=== PATIENT | male | born 1935 | race African-American/Black ===

== ENCOUNTER 2018-03-12 07:34 | Inpatient (IN) | payer OTHER ==
[~2018-03-12] VITALS: Ht 172.7 cm; Wt 97.2 kg
[2018-03-12] MEDS ORDERED: RANI150T7 MT (08:02)
[2018-03-12] MEDS ORDERED: LISI-649 MT (08:02)
[2018-03-12] MEDS ORDERED: TERA5CAP4 MT (08:02)
[2018-03-12] MEDS ORDERED: ATEN50TA MT (08:02)
[2018-03-12] MEDS ORDERED: ATOR-2 MT (08:02)
[2018-03-12] MEDS ORDERED: SODIUM CHLORIDE 0.9% 1,000 ML IV ONE (08:44)
[2018-03-12 09:17] LABS: HEMATOCRIT. 42.6 % (42.0-52.0); HEMOGLOBIN. 14.2 g/dL (14.0-18.0); MEAN CORPUSCULAR HEMOGLOBIN 32.2 pg (28.0-32.0); MEAN CORPUSCULAR VOLUME 96.4 fL (80.0-94.0); MEAN PLATELET VOLUME 9.1 fl (7.4-10.4); PLATELET 205 x1000/uL (130-400); RED BLOOD CELL COUNT 4.42 mill/uL (4.7-6.1); RED CELL DISTRIBUTION WIDTH 14.2 % (11.6-14.6)
[2018-03-12 09:26] LABS: INR 1.1
[2018-03-12 09:42] LABS: CHLORIDE 107 mEq/L (98-107)
[2018-03-12 09:57] LABS: PLATELET ESTIMATE NORMAL
[2018-03-12] MEDS ORDERED: LIDOCAINE HCL 2% JELLY 5ML TOP ONE (10:00)
[2018-03-12 14:57] LABS: CLARITY URINE CLOUDY (CLEAR); COLOR URINE RED (YELLOW); KETONES URINE NEGATIVE (NEGATIVE); LEUKOCYTE ESTERASE URINE TRACE (NEGATIVE); NITRITE URINE NEGATIVE (NEGATIVE); OCCULT BLOOD URINE 3+ (NEGATIVE); PH URINE 5.5 (4.5-8.0); PROTEIN URINE NEGATIVE (NEGATIVE); SPECIFIC GRAVITY URINE 1.006 (1.005-1.030); UROBILINOGEN URINE 0.2 E.U./dL (0.2-1.0)
[2018-03-12] MEDS ORDERED: CEFTRIAXONE 1 G PREMIX 50 ML IV ONE (15:15)
[2018-03-12] MEDS ORDERED: MAGNESIUM/ALUMINUM HYDROXIDE/SIMETHICONE 30ML UDC PO PRN (17:45)
[2018-03-12] MEDS ORDERED: IPRATROPIUM/ALBUTEROL 0.5-3(2.5)MG/3ML NEB INH PRN (17:45)
[2018-03-12] MEDS ORDERED: DIPHENHYDRAMINE 50MG/ML VIAL IV PRN (17:45)
[2018-03-12] MEDS ORDERED: HYDROCODONE/ACETAMINOPHEN 5/325MG TABLET PO PRN (17:45)
[2018-03-12] MEDS ORDERED: NA PHOS,M-B/NA PHOS,DI-BA ENEMA 118ML PR PRN (17:45)
[2018-03-12] MEDS ORDERED: DOCUSATE SODIUM 100MG CAPSULE PO PRN (17:45)
[2018-03-12] MEDS ORDERED: ONDANSETRON HCL 4MG/2ML INJ IV PRN (17:45)
[2018-03-12] MEDS ORDERED: ACETAMINOPHEN 325MG TABLET PO PRN (17:45)
[2018-03-12] MEDS ORDERED: GUAIFENESIN 200MG/10ML SUGAR FREE UDC PO PRN (17:45)
[2018-03-12] MEDS ORDERED: LORAZEPAM 2MG/ML CPJ IV PRN (17:45)
[2018-03-12 19:11] LABS: CHLORIDE 106 mEq/L (98-107)
[2018-03-12] MEDS ORDERED: HYDROMORPHONE HCL/PF 2MG/ML CPJ IV PRN (19:30)
[2018-03-12] MEDS ORDERED: SODIUM CHLORIDE 0.45% 1,000 ML IV SCH (19:30)
[2018-03-12 20:00] VITALS: BP 170/85
[2018-03-12] MEDS: CLONIDINE 0.1MG TABLET PO PRN (22:10)
[2018-03-13 04:09] VITALS: BP 170/85
[2018-03-13 07:39] LABS: BASOPHILS % 0.4 % (0.0-2.0); EOSINOPHILS % 1.5 % (0.0-5.0); HEMATOCRIT. 40.9 % (42.0-52.0); HEMOGLOBIN. 13.8 g/dL (14.0-18.0); LYMPHOCYTES % 19.5 % (20.0-50.0); MEAN CORPUSCULAR HEMOGLOBIN 32.4 pg (28.0-32.0); MEAN CORPUSCULAR VOLUME 96.3 fL (80.0-94.0); MEAN PLATELET VOLUME 9.4 fl (7.4-10.4); MONOCYTES % 11.2 % (2.0-8.0); NEUTROPHILS % 67.4 % (40.0-76.0); PLATELET 192 x1000/uL (130-400); RED BLOOD CELL COUNT 4.25 mill/uL (4.7-6.1); RED CELL DISTRIBUTION WIDTH 14.1 % (11.6-14.6)
[2018-03-13 07:46] LABS: CHLORIDE 106 mEq/L (98-107)
[2018-03-13 07:58] LABS: LDL CHOLESTEROL 130 mg/dL (5-100)
[2018-03-13 07:59] LABS: HDL CHOLESTEROL 48 mg/dL (40-59)
[2018-03-13 08:00] VITALS: BP 168/79
[2018-03-13] MEDS ORDERED: PNEUMOCOCCAL 23-VAL P-SAC VAC 0.5 ML IM ONE (08:00)
[2018-03-13] MEDS ORDERED: INFLUENZA VIRUS VACCINE(AFLURIA) 0.5ML SYR IM ONE (10:00)
[2018-03-13] MEDS: CEFTRIAXONE 1 G PREMIX 50 ML IV SCH (11:37)
[2018-03-13 12:00] VITALS: BP 139/56
[2018-03-13 16:00] VITALS: BP 150/77
[2018-03-13 20:00] VITALS: BP 167/85
[2018-03-14] VITALS (8 sets, daily range): BP systolic 132–187; BP diastolic 69–91
[2018-03-14 05:52] LABS: BASOPHILS % 0.5 % (0.0-2.0); EOSINOPHILS % 2.9 % (0.0-5.0); HEMATOCRIT. 43.6 % (42.0-52.0); HEMOGLOBIN. 14.8 g/dL (14.0-18.0); LYMPHOCYTES % 26.1 % (20.0-50.0); MEAN CORPUSCULAR HEMOGLOBIN 32.6 pg (28.0-32.0); MEAN CORPUSCULAR VOLUME 96.1 fL (80.0-94.0); MEAN PLATELET VOLUME 9.3 fl (7.4-10.4); MONOCYTES % 8.7 % (2.0-8.0); NEUTROPHILS % 61.8 % (40.0-76.0); PLATELET 224 x1000/uL (130-400); RED BLOOD CELL COUNT 4.53 mill/uL (4.7-6.1); RED CELL DISTRIBUTION WIDTH 14.6 % (11.6-14.6)
[2018-03-14 06:20] LABS: CHLORIDE 105 mEq/L (98-107)
[2018-03-14] MEDS ORDERED: TAMSULOSIN HCL 0.4MG SR CAPSULE PO SCH (09:00)
[2018-03-14] MEDS ORDERED: FINASTERIDE 5MG TABLET PO SCH (09:00)
[2018-03-14] MEDS: CEFTRIAXONE 1 G PREMIX 50 ML IV SCH (10:09)
[2018-03-14] MEDS: CLONIDINE 0.1MG TABLET PO PRN (15:43)
[2018-03-14] MEDS ORDERED: TAMS-11 PO ×2 (19:55→19:56)
== END 2018-03-14 20:25 | disposition home or self-care (01) | DRG 726 ==
LOC: ER 07:52 → 6EST 15:34 → EDBEDREQ 15:37 → ENRESERV 18:06 → 6EST 20:41
PROVIDERS: ADMIT Internal Medicine; ATTEND Internal Medicine
DX: N40.0 Benign prostatic hyperplasia without lower urinary tract symptoms (principal); R31.0 Gross hematuria; D64.9 Anemia, unspecified; I10 Essential (primary) hypertension; Z85.46 Personal history of malignant neoplasm of prostate; E11.9 Type 2 diabetes mellitus without complications; Z96.649 Presence of unspecified artificial hip joint; E78.00 Pure hypercholesterolemia, unspecified; F17.200 Nicotine dependence, unspecified, uncomplicated; K76.89 Other specified diseases of liver; Z95.5 Presence of coronary angioplasty implant and graft; M19.90 Unspecified osteoarthritis, unspecified site
CPT/HCPCS: 36415; 74176; 80048; 80061; 99285; J0696; J1170; J7030; A4315

== ENCOUNTER 2021-01-07 11:25 | Emergency (ER) | payer OTHER ==
[~2021-01-07] VITALS: Ht 167.6 cm; Wt 87.0 kg
[~2021-01-07 11:25] MED LIST: ATEN50TA MT; ATOR-2 MT; LISI-649 MT; RANI150T7 MT; TAMS-11 PO; TERA5CAP4 MT
[2021-01-07 12:24] LABS: BASOPHILS % 0.5 % (0.0-2.0); EOSINOPHILS % 1.1 % (0.0-5.0); HEMATOCRIT. 26.7 % (42.0-52.0); HEMOGLOBIN. 8.2 g/dL (14.0-18.0); LYMPHOCYTES % 11.2 % (20.0-50.0); MEAN CORPUSCULAR HEMOGLOBIN 22.1 pg (28.0-32.0); MEAN CORPUSCULAR VOLUME 72.3 fL (80.0-94.0); MEAN PLATELET VOLUME 8.1 fl (7.4-10.4); MONOCYTES % 6.1 % (2.0-8.0); NEUTROPHILS % 81.1 % (40.0-76.0); PLATELET 317 x1000/uL (130-400); RED CELL DISTRIBUTION WIDTH 20.2 % (11.6-14.6)
[2021-01-07 12:32] LABS: CHLORIDE 108 mEq/L (98-107)
[2021-01-07 12:52] LABS: CLARITY URINE CLEAR (CLEAR); COLOR URINE YELLOW (YELLOW); KETONES URINE NEGATIVE (NEGATIVE); LEUKOCYTE ESTERASE URINE NEGATIVE (NEGATIVE); NITRITE URINE NEGATIVE (NEGATIVE); OCCULT BLOOD URINE TRACE (NEGATIVE); PH URINE 5.5 (4.5-8.0); PROTEIN URINE 1+ (NEGATIVE); SPECIFIC GRAVITY URINE 1.018 (1.005-1.030); UROBILINOGEN URINE 0.2 E.U./dL (0.2-1.0)
[2021-01-07] MEDS ORDERED: IBUP-2028 MT (15:50)
[2021-01-07 16:01] VITALS: BP 180/78
== END 2021-01-07 16:25 | disposition home or self-care (01) ==
LOC: ER 11:25
DX: K40.90 Unilateral inguinal hernia, without obstruction or gangrene, not specified as recurrent (principal); E78.00 Pure hypercholesterolemia, unspecified; I11.9 Hypertensive heart disease without heart failure; Z87.891 Personal history of nicotine dependence; Z79.899 Other long term (current) drug therapy
CPT/HCPCS: 36415; 74176; 80053; 81003; 82248; 85025; 93005; 99285

== ENCOUNTER 2021-04-28 14:09 | Inpatient (IN) | payer OTHER ==
[~2021-04-28] VITALS: Ht 185.4 cm; Wt 85.7 kg
[~2021-04-28 14:09] MED LIST changes: +IBUP-2028 MT
[2021-04-28] MEDS ORDERED: AZITHROMYCIN 500MG/250ML 250 ML IV NR (15:30)
[2021-04-28] MEDS ORDERED: CEFTRIAXONE 1 G PREMIX 50 ML IV NR ×2 (15:30→20:00)
[2021-04-28 15:37] LABS: BASOPHILS % 0.9 % (0.0-2.0); EOSINOPHILS % 0.2 % (0.0-5.0); HEMATOCRIT. 23.3 % (42.0-52.0); HEMOGLOBIN. 7.1 g/dL (14.0-18.0); LYMPHOCYTES % 16.6 % (20.0-50.0); MEAN CORPUSCULAR HEMOGLOBIN 20.6 pg (28.0-32.0); MEAN CORPUSCULAR VOLUME 67.4 fL (80.0-94.0); MEAN PLATELET VOLUME 9.6 fl (7.4-10.4); MONOCYTES % 11.2 % (2.0-8.0); NEUTROPHILS % 71.1 % (40.0-76.0); PLATELET 345 x1000/uL (130-400); RED BLOOD CELL COUNT 3.45 mill/uL (4.7-6.1)
[2021-04-28 15:44] LABS: CHLORIDE 108 mEq/L (98-107)
[2021-04-28] MEDS ORDERED: FUROSEMIDE 40MG/4ML VIAL IVP ONE (16:30)
[2021-04-28] MEDS ORDERED: ASPIRIN 325MG EC TABLET PO ONE (16:30)
[2021-04-28 17:49] LABS: PLATELET ESTIMATE NORMAL
[2021-04-28 18:59] LABS: CLARITY URINE CLEAR (CLEAR); COLOR URINE YELLOW (YELLOW); KETONES URINE NEGATIVE (NEGATIVE); LEUKOCYTE ESTERASE URINE NEGATIVE (NEGATIVE); NITRITE URINE NEGATIVE (NEGATIVE); OCCULT BLOOD URINE NEGATIVE (NEGATIVE); PH URINE 5.5 (4.5-8.0); PROTEIN URINE 2+ (NEGATIVE); SPECIFIC GRAVITY URINE 1.012 (1.005-1.030)
[2021-04-28] MEDS ORDERED: CLONIDINE 0.1MG TABLET PO PRN (19:30)
[2021-04-28] MEDS ORDERED: ONDANSETRON HCL 4MG/2ML INJ IV PRN (19:30)
[2021-04-28] MEDS ORDERED: GUAIFENESIN 200MG/10ML SUGAR FREE UDC PO PRN (19:30)
[2021-04-28] MEDS ORDERED: MAGNESIUM/ALUMINUM HYDROXIDE/SIMETHICONE 30ML UDC PO PRN (19:30)
[2021-04-28] MEDS ORDERED: DOCUSATE SODIUM 100MG CAPSULE PO PRN (19:30)
[2021-04-28] MEDS ORDERED: ACETAMINOPHEN 325MG TABLET PO PRN ×2 (19:30)
[2021-04-28] MEDS ORDERED: ZOLPIDEM TARTRATE 5MG TABLET PO PRN (19:30)
[2021-04-28] MEDS ORDERED: IPRATROPIUM/ALBUTEROL 0.5-3(2.5)MG/3ML NEB NEB PRN (19:30)
[2021-04-28] MEDS ORDERED: PANTOPRAZOLE 80 MG in SODIUM CHLORIDE 0.9% 100 ML IV SCH (20:00)
[2021-04-28] MEDS: DEXT 5%/0.45% NACL 1000ML 1,000 ML IV SCH (20:09)
[2021-04-28 20:22] LABS: T4 FREE 1.11 ng/dL (0.76-1.46)
[2021-04-28 20:33] LABS: FOLIC ACID (FOLATE) SERUM 17.6 ng/mL (>5.38)
[2021-04-28] MEDS: PANTOPRAZOLE 80 MG in SODIUM CHLORIDE 0.9% 100 ML IV SCH (20:43)
[2021-04-28] MEDS ORDERED: DEXTROSE 50% WATER 50ML SYRINGE IV PRN (22:00)
[2021-04-29] VITALS (12 sets, daily range): BP systolic 135–148; BP diastolic 68–88
[2021-04-29 04:36] LABS: BASOPHILS % 1.4 % (0.0-2.0); EOSINOPHILS % 1.2 % (0.0-5.0); HEMATOCRIT. 22.4 % (42.0-52.0); LYMPHOCYTES % 22.2 % (20.0-50.0); MEAN CORPUSCULAR HEMOGLOBIN 20.9 pg (28.0-32.0); MEAN CORPUSCULAR VOLUME 67.7 fL (80.0-94.0); MEAN PLATELET VOLUME 9.1 fl (7.4-10.4); MONOCYTES % 12.7 % (2.0-8.0); NEUTROPHILS % 62.5 % (40.0-76.0); PLATELET 338 x1000/uL (130-400); RED BLOOD CELL COUNT 3.31 mill/uL (4.7-6.1)
[2021-04-29 04:47] LABS: HEMOGLOBIN. 6.9 g/dL (14.0-18.0)
[2021-04-29 04:52] LABS: CHLORIDE 109 mEq/L (98-107)
[2021-04-29 05:00] LABS: CREATINE KINASE MB FRACTION 16.1 ng/mL (0.5-3.6)
[2021-04-29] MEDS: PANTOPRAZOLE 80 MG in SODIUM CHLORIDE 0.9% 100 ML IV SCH ×2 (06:51→17:45)
[2021-04-29] MEDS: INSULIN LISPRO 100 UNITS/ML SUBCUT SCH ×4 (08:20→20:50)
[2021-04-29] MEDS: BLOOD SUGAR DIAGNOSTIC STRIP TEST SCH ×4 (09:00→20:50)
[2021-04-29] MEDS: DEXT 5%/0.45% NACL 1000ML 1,000 ML IV SCH (10:07)
[2021-04-29] MEDS: AMLODIPINE 10MG TABLET PO SCH (10:37)
[2021-04-29 11:53] LABS: *AMPHETAMINES SCREEN URINE NEGATIVE (NEGATIVE); *BARBITURATES SCREEN URINE NEGATIVE (NEGATIVE); *BENZODIAZEPINES SCREEN URINE NEGATIVE (NEGATIVE)
[2021-04-29 11:54] LABS: *COCAINE SCREEN URINE NEGATIVE (NEGATIVE); CANNABINOID URINE SCREEN NEGATIVE (NEGATIVE); METHADONE URINE SCREEN NEGATIVE (NEGATIVE); OPIATES URINE SCREEN NEGATIVE (NEGATIVE); PHENCYCLIDINE URINE SCREEN NEGATIVE (NEGATIVE)
[2021-04-29] MEDS ORDERED: *PATIENT'S OWN MEDICATION STORAGE XX SCH (14:15)
[2021-04-29] MEDS ORDERED: NALOXONE HCL 0.4MG/ML VIAL IV PRN (14:15)
[2021-04-29] MEDS ORDERED: FUROSEMIDE 20MG/2ML VIAL IVP NR (15:15)
[2021-04-29] MEDS ORDERED: AZITHROMYCIN 500 MG in DEXT 5% WATER 250 ML IV SCH ×2 (17:00→18:00)
[2021-04-29] MEDS ORDERED: SENNOSIDES 8.6MG TABLET PO PRN (17:00)
[2021-04-29] MEDS: SUCRALFATE 1G TABLET PO SCH ×2 (17:44→20:49)
[2021-04-29] MEDS: IRON SUCROSE COMPLEX 100 MG/5 ML ML IV SCH (17:45)
[2021-04-29] MEDS: PANTOPRAZOLE SODIUM 40 MG/VIAL IV SCH (17:45)
[2021-04-29] MEDS ORDERED: PANTOPRAZOLE SODIUM 40 MG/VIAL IV ONE (17:48)
[2021-04-29] MEDS ORDERED: POTASSIUM CHLORIDE 20MEQ TABLET SR PO NR (19:30)
[2021-04-29] MEDS ORDERED: CEFTRIAXONE 1,000 MG in DEXTROSE 5% WATER 50 ML IV SCH (20:00)
[2021-04-29] MEDS ORDERED: CEFTRIAXONE 1 G PREMIX 50 ML IV SCH (21:00)
[2021-04-30] VITALS: BP 145/75
[2021-04-30 04:00] VITALS: BP 144/70
[2021-04-30] MEDS: BLOOD SUGAR DIAGNOSTIC STRIP TEST SCH ×4 (06:25→20:35)
[2021-04-30] MEDS: SUCRALFATE 1G TABLET PO SCH ×4 (06:25→20:34)
[2021-04-30] MEDS: INSULIN LISPRO 100 UNITS/ML SUBCUT SCH ×4 (06:26→20:35)
[2021-04-30 06:32] LABS: EOSINOPHILS % 2.3 % (0.0-5.0); HEMATOCRIT. 24.8 % (42.0-52.0); HEMOGLOBIN. 7.9 g/dL (14.0-18.0); LYMPHOCYTES % 19.4 % (20.0-50.0); MEAN CORPUSCULAR HEMOGLOBIN 22.2 pg (28.0-32.0); MEAN CORPUSCULAR VOLUME 69.1 fL (80.0-94.0); MEAN PLATELET VOLUME 9.6 fl (7.4-10.4); MONOCYTES % 12.6 % (2.0-8.0); NEUTROPHILS % 64.7 % (40.0-76.0); PLATELET 312 x1000/uL (130-400); RED BLOOD CELL COUNT 3.58 mill/uL (4.7-6.1); RED CELL DISTRIBUTION WIDTH 23.8 % (11.6-14.6)
[2021-04-30 07:03] LABS: CHLORIDE 107 mEq/L (98-107)
[2021-04-30 07:18] LABS: INR 1.3; PROTHROMBIN TIME 13.3 sec (9.6-11.0)
[2021-04-30 08:00] VITALS: BP 157/83
[2021-04-30] MEDS ORDERED: POTASSIUM CHLORIDE 20MEQ TABLET SR PO NR (09:00)
[2021-04-30] MEDS: AMLODIPINE 10MG TABLET PO SCH (09:44)
[2021-04-30] MEDS ORDERED: DIATR MEGLU/DIATRIZOATE SOLN 30ML PO SCH (10:00)
[2021-04-30] MEDS ORDERED: POTASSIUM CHLORIDE INJ 40 MEQ in DEXT 5% WATER 250 ML IV ONE (10:15)
[2021-04-30] MEDS ORDERED: LIDOCAINE HCL/PF 1% 10 MG/ML 5ML VIAL ONE (10:39)
[2021-04-30] MEDS: IRON SUCROSE COMPLEX 100 MG/5 ML ML IV SCH (11:22)
[2021-04-30] MEDS: FUROSEMIDE 40MG/4ML VIAL IVP SCH (11:22)
[2021-04-30] MEDS: PANTOPRAZOLE SODIUM 40 MG/VIAL IV SCH ×2 (11:22→17:12)
[2021-04-30] MEDS: KCL 20MEQ/100ML X 2 FOR TOTAL KCL 40MEQ/200ML IV SCH ×2 (11:23→14:40)
[2021-04-30 12:00] VITALS: BP 154/72
[2021-04-30] MEDS: DEXT 5%/0.45% NACL 1000ML 1,000 ML IV SCH (12:13)
[2021-04-30 13:03] LABS: PLATELET ESTIMATE NORMAL
[2021-04-30] MEDS: TRAMADOL 50MG TABLET PO PRN (14:40)
[2021-04-30] MEDS: DOCUSATE SODIUM 100MG CAPSULE PO SCH (14:41)
[2021-04-30] MEDS: SPIRONOLACTONE 25MG TABLET PO SCH (14:41)
[2021-04-30 16:00] VITALS: BP 129/75
[2021-04-30 20:00] VITALS: BP 149/80
[2021-05-01] VITALS (8 sets, daily range): BP systolic 129–155; BP diastolic 62–83
[2021-05-01] MEDS: DEXT 5%/0.45% NACL 1000ML 1,000 ML IV SCH ×2 (04:39→16:53)
[2021-05-01] MEDS: SUCRALFATE 1G TABLET PO SCH ×4 (06:11→20:35)
[2021-05-01] MEDS: INSULIN LISPRO 100 UNITS/ML SUBCUT SCH ×4 (06:30→20:35)
[2021-05-01] MEDS: BLOOD SUGAR DIAGNOSTIC STRIP TEST SCH ×4 (06:30→20:35)
[2021-05-01 07:34] LABS: HEMATOCRIT. 23.1 % (42.0-52.0); HEMOGLOBIN. 7.3 g/dL (14.0-18.0); MEAN CORPUSCULAR HEMOGLOBIN 21.7 pg (28.0-32.0); MEAN CORPUSCULAR VOLUME 68.5 fL (80.0-94.0); MEAN PLATELET VOLUME 9.4 fl (7.4-10.4); PLATELET 342 x1000/uL (130-400); RED BLOOD CELL COUNT 3.37 mill/uL (4.7-6.1); RED CELL DISTRIBUTION WIDTH 23.1 % (11.6-14.6)
[2021-05-01 07:43] LABS: CHLORIDE 105 mEq/L (98-107)
[2021-05-01] MEDS: PANTOPRAZOLE SODIUM 40 MG/VIAL IV SCH ×2 (09:15→16:53)
[2021-05-01] MEDS: SPIRONOLACTONE 25MG TABLET PO SCH (09:15)
[2021-05-01] MEDS: DOCUSATE SODIUM 100MG CAPSULE PO SCH (09:15)
[2021-05-01] MEDS: FUROSEMIDE 40MG/4ML VIAL IVP SCH (09:15)
[2021-05-01] MEDS: AMLODIPINE 10MG TABLET PO SCH (09:16)
[2021-05-01] MEDS: IRON SUCROSE COMPLEX 100 MG/5 ML ML IV SCH (09:46)
[2021-05-01] MEDS ORDERED: VANCOMYCIN 1250MG in DEXTROSE 5% WATER 250ML IV SCH (13:00)
[2021-05-01 17:13] LABS: PLATELET ESTIMATE NORMAL
[2021-05-02] VITALS (9 sets, daily range): BP systolic 118–146; BP diastolic 61–86
[2021-05-02] MEDS: SUCRALFATE 1G TABLET PO SCH ×4 (06:19→20:24)
[2021-05-02] MEDS: BLOOD SUGAR DIAGNOSTIC STRIP TEST SCH ×4 (06:29→20:33)
[2021-05-02] MEDS: INSULIN LISPRO 100 UNITS/ML SUBCUT SCH ×4 (06:29→20:33)
[2021-05-02 08:00] LABS: CHLORIDE 104 mEq/L (98-107)
[2021-05-02 08:01] LABS: BASOPHILS % 1.4 % (0.0-2.0); EOSINOPHILS % 8.7 % (0.0-5.0); HEMATOCRIT. 26.7 % (42.0-52.0); HEMOGLOBIN. 8.6 g/dL (14.0-18.0); LYMPHOCYTES % 21.3 % (20.0-50.0); MEAN CORPUSCULAR VOLUME 71.9 fL (80.0-94.0); MEAN PLATELET VOLUME 8.9 fl (7.4-10.4); MONOCYTES % 12.5 % (2.0-8.0); NEUTROPHILS % 56.1 % (40.0-76.0); PLATELET 336 x1000/uL (130-400); RED BLOOD CELL COUNT 3.72 mill/uL (4.7-6.1); RED CELL DISTRIBUTION WIDTH 24.6 % (11.6-14.6)
[2021-05-02] MEDS: SPIRONOLACTONE 25MG TABLET PO SCH (08:27)
[2021-05-02] MEDS: FUROSEMIDE 40MG/4ML VIAL IVP SCH (08:27)
[2021-05-02] MEDS: DOCUSATE SODIUM 100MG CAPSULE PO SCH (08:27)
[2021-05-02] MEDS: PANTOPRAZOLE SODIUM 40 MG/VIAL IV SCH ×2 (08:27→16:18)
[2021-05-02] MEDS: AMLODIPINE 10MG TABLET PO SCH (08:28)
[2021-05-02] MEDS ORDERED: POTASSIUM CHLORIDE 20MEQ/PACKET PO NR (11:30)
[2021-05-02] MEDS: BISACODYL 5MG TABLET PO SCH ×3 (12:34→20:24)
[2021-05-02] MEDS: SORBITOL 70% SOLN 30ML PO SCH ×3 (12:35→20:24)
[2021-05-02] MEDS: METOCLOPRAMIDE HCL 10MG/2ML VIAL IV SCH ×3 (12:36→20:24)
[2021-05-02] MEDS: VANCOMYCIN 1,500 MG in DEXT 5% WATER 250 ML IV SCH (13:13)
[2021-05-02] MEDS: DEXT 5%/0.45% NACL 1000ML 1,000 ML IV SCH ×2 (16:19→16:50)
[2021-05-03] VITALS: BP 139/68
[2021-05-03] MEDS: SORBITOL 70% SOLN 30ML PO SCH (00:42)
[2021-05-03] MEDS: METOCLOPRAMIDE HCL 10MG/2ML VIAL IV SCH (00:43)
[2021-05-03] MEDS: BISACODYL 5MG TABLET PO SCH (00:43)
[2021-05-03 04:00] VITALS: BP 132/70
[2021-05-03] MEDS: DEXT 5%/0.45% NACL 1000ML 1,000 ML IV SCH (06:06)
[2021-05-03] MEDS: SUCRALFATE 1G TABLET PO SCH ×4 (06:06→20:13)
[2021-05-03] MEDS: BLOOD SUGAR DIAGNOSTIC STRIP TEST SCH ×4 (06:06→21:00)
[2021-05-03] MEDS: INSULIN LISPRO 100 UNITS/ML SUBCUT SCH ×4 (06:07→21:00)
[2021-05-03 08:00] VITALS: BP 122/54
[2021-05-03] MEDS: FUROSEMIDE 40MG TABLET PO SCH (09:00)
[2021-05-03] MEDS: SPIRONOLACTONE 25MG TABLET PO SCH (09:00)
[2021-05-03] MEDS: PANTOPRAZOLE SODIUM 40 MG/VIAL IV SCH ×2 (09:00→16:57)
[2021-05-03] MEDS: DOCUSATE SODIUM 100MG CAPSULE PO SCH (09:00)
[2021-05-03 09:46] LABS: HEMATOCRIT. 24.9 % (42.0-52.0); HEMOGLOBIN. 7.9 g/dL (14.0-18.0); MEAN CORPUSCULAR HEMOGLOBIN 23.1 pg (28.0-32.0); MEAN CORPUSCULAR VOLUME 72.9 fL (80.0-94.0); MEAN PLATELET VOLUME 8.7 fl (7.4-10.4); PLATELET 287 x1000/uL (130-400); RED BLOOD CELL COUNT 3.41 mill/uL (4.7-6.1); RED CELL DISTRIBUTION WIDTH 24.7 % (11.6-14.6)
[2021-05-03 09:58] LABS: CHLORIDE 109 mEq/L (98-107)
[2021-05-03] MEDS: AMLODIPINE 10MG TABLET PO SCH (10:03)
[2021-05-03 10:14] LABS: INR 1.2; PROTHROMBIN TIME 12.9 sec (9.6-11.0)
[2021-05-03] MEDS ORDERED: POTASSIUM CHLORIDE INJ 40 MEQ in DEXT 5% WATER 250 ML IV ONE (10:15)
[2021-05-03 10:38] LABS: PLATELET ESTIMATE NORMAL
[2021-05-03] MEDS: KCL 20MEQ/100ML X 2 FOR TOTAL KCL 40MEQ/200ML IV SCH ×2 (11:48→16:21)
[2021-05-03 12:00] VITALS: BP 139/72
[2021-05-03] MEDS ORDERED: PROPOFOL 200MG/20ML VIAL IV ONE ×2 (12:40→13:09)
[2021-05-03 16:00] VITALS: BP 140/78
[2021-05-03] MEDS: TRAMADOL 50MG TABLET PO PRN (16:56)
[2021-05-03] MEDS ORDERED: TAMS-11 PO (19:33)
[2021-05-03] MEDS ORDERED: OMEP40CA20 PO (19:34)
[2021-05-03 20:00] VITALS: BP_SYST 133; BP_SYST 139; BP_DIAS 69; BP_DIAS 70
[2021-05-03] MEDS: VANCOMYCIN 1,500 MG in DEXT 5% WATER 250 ML IV SCH (20:14)
[2021-05-04 00:03] VITALS: BP 146/80
[2021-05-04] MEDS ORDERED: POTASSIUM CHLORIDE 20MEQ TABLET SR PO NR (00:45)
[2021-05-04] MEDS: POTASSIUM CHLORIDE 20MEQ TABLET SR PO SCH ×3 (02:36→08:52)
[2021-05-04 03:41] VITALS: BP 159/82
[2021-05-04] MEDS: INSULIN LISPRO 100 UNITS/ML SUBCUT SCH ×4 (06:37→21:00)
[2021-05-04] MEDS: BLOOD SUGAR DIAGNOSTIC STRIP TEST SCH ×4 (06:37→21:15)
[2021-05-04] MEDS: DEXT 5%/0.45% NACL 1000ML 1,000 ML IV SCH ×3 (06:37→21:22)
[2021-05-04 08:00] VITALS: BP 148/88
[2021-05-04 08:27] LABS: HEMATOCRIT. 31.9 % (42.0-52.0); HEMOGLOBIN. 10.1 g/dL (14.0-18.0); MEAN CORPUSCULAR HEMOGLOBIN 23.5 pg (28.0-32.0); MEAN PLATELET VOLUME 8.6 fl (7.4-10.4); PLATELET 347 x1000/uL (130-400); RED BLOOD CELL COUNT 4.31 mill/uL (4.7-6.1); RED CELL DISTRIBUTION WIDTH 25.1 % (11.6-14.6)
[2021-05-04 08:35] LABS: CHLORIDE 106 mEq/L (98-107)
[2021-05-04] MEDS: FUROSEMIDE 40MG TABLET PO SCH (08:52)
[2021-05-04] MEDS: PANTOPRAZOLE SODIUM 40 MG/VIAL IV SCH ×2 (08:52→17:06)
[2021-05-04] MEDS: SUCRALFATE 1G TABLET PO SCH ×4 (08:52→21:12)
[2021-05-04] MEDS: SPIRONOLACTONE 25MG TABLET PO SCH (08:53)
[2021-05-04] MEDS: AMLODIPINE 10MG TABLET PO SCH (08:53)
[2021-05-04] MEDS: DOCUSATE SODIUM 100MG CAPSULE PO SCH (08:53)
[2021-05-04] MEDS ORDERED: KETOROLAC 15MG/ML VIAL IV PRN (09:15)
[2021-05-04 12:00] VITALS: BP 136/82
[2021-05-04 13:18] LABS: PLATELET ESTIMATE NORMAL
[2021-05-04] MEDS ORDERED: MAGNESIUM CITRATE 300ML SOLUTION PO SCH (15:00)
[2021-05-04] MEDS: VANCOMYCIN 1,500 MG in DEXT 5% WATER 250 ML IV SCH (15:18)
[2021-05-04 16:00] VITALS: BP 116/56
[2021-05-04] MEDS ORDERED: MAGNESIUM 1 G PREMIX 100 ML IV SCH (16:00)
[2021-05-04 20:00] VITALS: BP 142/82
[2021-05-05] VITALS: BP 143/86
[2021-05-05 04:00] VITALS: BP 141/50
[2021-05-05] MEDS: SUCRALFATE 1G TABLET PO SCH ×4 (06:21→20:43)
[2021-05-05] MEDS: BLOOD SUGAR DIAGNOSTIC STRIP TEST SCH ×4 (06:26→20:45)
[2021-05-05] MEDS: INSULIN LISPRO 100 UNITS/ML SUBCUT SCH ×4 (06:26→20:45)
[2021-05-05 08:00] VITALS: BP 151/95
[2021-05-05] MEDS: FUROSEMIDE 40MG TABLET PO SCH (08:12)
[2021-05-05] MEDS: PANTOPRAZOLE SODIUM 40 MG/VIAL IV SCH ×2 (08:13→16:55)
[2021-05-05] MEDS: SPIRONOLACTONE 25MG TABLET PO SCH (08:13)
[2021-05-05] MEDS: DOCUSATE SODIUM 100MG CAPSULE PO SCH (08:13)
[2021-05-05] MEDS: AMLODIPINE 10MG TABLET PO SCH (08:13)
[2021-05-05 10:30] LABS: CHLORIDE 107 mEq/L (98-107)
[2021-05-05] MEDS ORDERED: MAGNESIUM 1 G PREMIX 100 ML IV NR (11:00)
[2021-05-05] MEDS: DEXT 5%/0.45% NACL 1000ML 1,000 ML IV SCH (11:54)
[2021-05-05 12:00] VITALS: BP 138/94
[2021-05-05] MEDS: VANCOMYCIN 1,500 MG in DEXT 5% WATER 250 ML IV SCH (15:09)
[2021-05-05 16:00] VITALS: BP 135/76
[2021-05-05 20:00] VITALS: BP 140/73
[2021-05-06] VITALS: BP 133/63
[2021-05-06] MEDS: DEXT 5%/0.45% NACL 1000ML 1,000 ML IV SCH ×2 (00:58→14:20)
[2021-05-06 04:00] VITALS: BP 108/62
[2021-05-06] MEDS: SUCRALFATE 1G TABLET PO SCH ×4 (06:46→23:12)
[2021-05-06] MEDS: INSULIN LISPRO 100 UNITS/ML SUBCUT SCH ×4 (06:46→21:00)
[2021-05-06] MEDS: BLOOD SUGAR DIAGNOSTIC STRIP TEST SCH ×4 (06:46→21:00)
[2021-05-06 08:00] VITALS: BP 147/79
[2021-05-06] MEDS: DOCUSATE SODIUM 100MG CAPSULE PO SCH (09:04)
[2021-05-06] MEDS: SPIRONOLACTONE 25MG TABLET PO SCH (09:04)
[2021-05-06] MEDS: FUROSEMIDE 40MG TABLET PO SCH (09:04)
[2021-05-06] MEDS: AMLODIPINE 10MG TABLET PO SCH (09:04)
[2021-05-06] MEDS: PANTOPRAZOLE SODIUM 40 MG/VIAL IV SCH ×2 (09:05→17:38)
[2021-05-06 12:00] VITALS: BP 109/73
[2021-05-06] MEDS: VANCOMYCIN 1,500 MG in DEXT 5% WATER 250 ML IV SCH (14:20)
[2021-05-06 16:00] VITALS: BP 94/41
[2021-05-06 20:00] VITALS: BP 111/51
[2021-05-07] VITALS: BP 105/60
[2021-05-07 04:00] VITALS: BP 110/89
[2021-05-07 05:27] LABS: CHLORIDE 106 mEq/L (98-107)
[2021-05-07 05:40] LABS: BASOPHILS % 1.8 % (0.0-2.0); EOSINOPHILS % 9.4 % (0.0-5.0); HEMATOCRIT. 26.3 % (42.0-52.0); HEMOGLOBIN. 8.6 g/dL (14.0-18.0); LYMPHOCYTES % 30.6 % (20.0-50.0); MEAN CORPUSCULAR HEMOGLOBIN 23.6 pg (28.0-32.0); MEAN CORPUSCULAR VOLUME 72.5 fL (80.0-94.0); MEAN PLATELET VOLUME 8.4 fl (7.4-10.4); MONOCYTES % 14.4 % (2.0-8.0); NEUTROPHILS % 43.8 % (40.0-76.0); PLATELET 300 x1000/uL (130-400); RED BLOOD CELL COUNT 3.63 mill/uL (4.7-6.1); RED CELL DISTRIBUTION WIDTH 26.5 % (11.6-14.6)
[2021-05-07] MEDS: DEXT 5%/0.45% NACL 1000ML 1,000 ML IV SCH ×2 (05:40→15:17)
[2021-05-07] MEDS: BLOOD SUGAR DIAGNOSTIC STRIP TEST SCH ×4 (05:45→20:53)
[2021-05-07] MEDS: SUCRALFATE 1G TABLET PO SCH ×4 (05:45→20:53)
[2021-05-07] MEDS: INSULIN LISPRO 100 UNITS/ML SUBCUT SCH ×4 (05:45→21:00)
[2021-05-07 06:00] LABS: INR 1.1; PROTHROMBIN TIME 12.2 sec (9.6-11.0)
[2021-05-07 08:00] VITALS: BP 130/74
[2021-05-07] MEDS: FUROSEMIDE 40MG TABLET PO SCH (09:00)
[2021-05-07] MEDS: SPIRONOLACTONE 25MG TABLET PO SCH (09:00)
[2021-05-07] MEDS: DOCUSATE SODIUM 100MG CAPSULE PO SCH (09:00)
[2021-05-07] MEDS: PANTOPRAZOLE SODIUM 40 MG/VIAL IV SCH (09:00)
[2021-05-07] MEDS: AMLODIPINE 10MG TABLET PO SCH (09:00)
[2021-05-07] MEDS ORDERED: BUPIVACAINE HCL/PF 0.5% (5MG/ML) 30ML ONE (09:17)
[2021-05-07] MEDS ORDERED: POLYMYXIN B SULFATE 500000 UNITS/VIAL ONE (09:18)
[2021-05-07] MEDS ORDERED: FENTANYL CITRATE/PF 50MCG/ML 2ML VIAL ONE (09:51)
[2021-05-07] MEDS ORDERED: MIDAZOLAM HCL 2 MG/2 ML VIAL ONE (09:51)
[2021-05-07] MEDS ORDERED: PROPOFOL 200MG/20ML VIAL IV ONE (10:00)
[2021-05-07] MEDS ORDERED: ONDANSETRON HCL 4MG/2ML INJ ONE (10:00)
[2021-05-07] MEDS ORDERED: DEXAMETHASONE 4MG/ML 1ML VIAL ONE (10:00)
[2021-05-07] MEDS ORDERED: ROCURONIUM BROMIDE 10MG/ML VIAL 5ML IV ONE (10:01)
[2021-05-07] MEDS ORDERED: HYDROMORPHONE HCL/PF 2MG/ML (OR) ONE (10:03)
[2021-05-07] MEDS ORDERED: LABETALOL 5MG/ML SYR 20 MG/4 ML SYRINGE IV PRN (10:15)
[2021-05-07] MEDS ORDERED: HYDROMORPHONE HCL/PF 2MG/ML CPJ IV PRN (10:15)
[2021-05-07] MEDS ORDERED: MEPERIDINE HCL/PF 25MG/ML CPJ IV PRN (10:15)
[2021-05-07] MEDS ORDERED: ONDANSETRON HCL 4MG/2ML INJ IV PRN ×2 (10:15→11:15)
[2021-05-07] MEDS ORDERED: MORPHINE SULFATE 2 MG/ML CPJ (NOT FOR IM USE) IV PRN (11:15)
[2021-05-07] MEDS ORDERED: MORPHINE SULFATE 4 MG/ML CPJ (NOT FOR IM USE) IV PRN (11:15)
[2021-05-07] MEDS: DEXT 5%/0.45% NACL KCL 20MEQ/L 1,000 ML IV SCH ×2 (11:15→20:52)
[2021-05-07 13:01] VITALS: BP 119/58
[2021-05-07] MEDS: CEFAZOLIN 1000MG PREMIX 50 ML IV SCH ×2 (13:56→22:23)
[2021-05-07] MEDS ORDERED: BUPIVACAINE HCL 0.5% 125 ML in ON-Q PM012 DRUG DELIV DEVICE 1 EA IR NR (14:00)
[2021-05-07 16:00] VITALS: BP 121/62
[2021-05-07 20:00] VITALS: BP 116/53
[2021-05-07] MEDS: FAMOTIDINE 20MG/2ML VIAL IV SCH (20:52)
[2021-05-08] VITALS: BP 138/62
[2021-05-08 04:00] VITALS: BP 125/60
[2021-05-08] MEDS: SUCRALFATE 1G TABLET PO SCH ×4 (06:03→21:10)
[2021-05-08] MEDS: CEFAZOLIN 1000MG PREMIX 50 ML IV SCH ×2 (06:03→14:25)
[2021-05-08] MEDS: BLOOD SUGAR DIAGNOSTIC STRIP TEST SCH ×4 (06:03→21:11)
[2021-05-08] MEDS: DEXT 5%/0.45% NACL KCL 20MEQ/L 1,000 ML IV SCH ×2 (06:03→17:12)
[2021-05-08] MEDS: INSULIN LISPRO 100 UNITS/ML SUBCUT SCH ×4 (06:04→21:00)
[2021-05-08] MEDS: DEXT 5%/0.45% NACL 1000ML 1,000 ML IV SCH (06:10)
[2021-05-08 07:10] LABS: BASOPHILS % 0.1 % (0.0-2.0); HEMOGLOBIN. 8.5 g/dL (14.0-18.0); LYMPHOCYTES % 7.7 % (20.0-50.0); MEAN CORPUSCULAR HEMOGLOBIN 23.8 pg (28.0-32.0); MEAN CORPUSCULAR VOLUME 72.9 fL (80.0-94.0); MEAN PLATELET VOLUME 8.5 fl (7.4-10.4); MONOCYTES % 8.3 % (2.0-8.0); NEUTROPHILS % 83.9 % (40.0-76.0); PLATELET 306 x1000/uL (130-400); RED BLOOD CELL COUNT 3.57 mill/uL (4.7-6.1)
[2021-05-08 07:27] LABS: CHLORIDE 105 mEq/L (98-107)
[2021-05-08 08:00] VITALS: BP 141/71
[2021-05-08] MEDS: FAMOTIDINE 20MG/2ML VIAL IV SCH ×2 (08:59→21:11)
[2021-05-08] MEDS: DOCUSATE SODIUM 100MG CAPSULE PO SCH (08:59)
[2021-05-08] MEDS: SPIRONOLACTONE 25MG TABLET PO SCH (08:59)
[2021-05-08] MEDS: AMLODIPINE 10MG TABLET PO SCH (09:00)
[2021-05-08] MEDS: FUROSEMIDE 40MG TABLET PO SCH (09:00)
[2021-05-08 12:00] VITALS: BP 116/60
[2021-05-08] MEDS ORDERED: CEFAZOLIN 1000MG PREMIX 50 ML IV SCH (14:00)
[2021-05-08 16:00] VITALS: BP 117/65
[2021-05-08 20:00] VITALS: BP 137/70
[2021-05-09] VITALS: BP 127/65
[2021-05-09] MEDS: DEXT 5%/0.45% NACL KCL 20MEQ/L 1,000 ML IV SCH ×2 (02:26→13:48)
[2021-05-09 04:00] VITALS: BP 137/66
[2021-05-09] MEDS: SUCRALFATE 1G TABLET PO SCH ×4 (06:10→20:37)
[2021-05-09] MEDS: INSULIN LISPRO 100 UNITS/ML SUBCUT SCH ×4 (06:22→20:38)
[2021-05-09] MEDS: BLOOD SUGAR DIAGNOSTIC STRIP TEST SCH ×4 (06:22→20:38)
[2021-05-09 07:23] LABS: CHLORIDE 104 mEq/L (98-107)
[2021-05-09 07:25] LABS: BASOPHILS % 0.3 % (0.0-2.0); EOSINOPHILS % 1.1 % (0.0-5.0); HEMATOCRIT. 26.9 % (42.0-52.0); HEMOGLOBIN. 8.5 g/dL (14.0-18.0); MEAN CORPUSCULAR HEMOGLOBIN 23.5 pg (28.0-32.0); MEAN PLATELET VOLUME 8.9 fl (7.4-10.4); NEUTROPHILS % 76.6 % (40.0-76.0); PLATELET 265 x1000/uL (130-400); RED BLOOD CELL COUNT 3.63 mill/uL (4.7-6.1); RED CELL DISTRIBUTION WIDTH 26.8 % (11.6-14.6)
[2021-05-09 08:00] VITALS: BP 142/70
[2021-05-09] MEDS: FAMOTIDINE 20MG/2ML VIAL IV SCH ×2 (09:00→20:38)
[2021-05-09] MEDS: SPIRONOLACTONE 25MG TABLET PO SCH (10:34)
[2021-05-09] MEDS: AMLODIPINE 10MG TABLET PO SCH (10:34)
[2021-05-09] MEDS: FUROSEMIDE 40MG TABLET PO SCH (10:34)
[2021-05-09] MEDS: DOCUSATE SODIUM 100MG CAPSULE PO SCH (10:34)
[2021-05-09 12:00] VITALS: BP 151/73
[2021-05-09] MEDS ORDERED: ZOLPIDEM TARTRATE 5MG TABLET PO PRN (14:00)
[2021-05-09 16:00] VITALS: BP 135/68
[2021-05-09 20:00] VITALS: BP 146/79
[2021-05-10] VITALS: BP 134/75
[2021-05-10] MEDS: DEXT 5%/0.45% NACL KCL 20MEQ/L 1,000 ML IV SCH ×3 (00:10→18:41)
[2021-05-10 04:00] VITALS: BP 136/74
[2021-05-10] MEDS: SUCRALFATE 1G TABLET PO SCH ×4 (06:11→20:33)
[2021-05-10] MEDS: BLOOD SUGAR DIAGNOSTIC STRIP TEST SCH ×4 (06:24→20:34)
[2021-05-10] MEDS: INSULIN LISPRO 100 UNITS/ML SUBCUT SCH ×4 (06:24→20:34)
[2021-05-10 07:55] LABS: BASOPHILS % 0.5 % (0.0-2.0); EOSINOPHILS % 1.2 % (0.0-5.0); HEMATOCRIT. 29.6 % (42.0-52.0); HEMOGLOBIN. 9.3 g/dL (14.0-18.0); MEAN CORPUSCULAR HEMOGLOBIN 22.9 pg (28.0-32.0); MEAN CORPUSCULAR VOLUME 72.8 fL (80.0-94.0); MEAN PLATELET VOLUME 8.8 fl (7.4-10.4); MONOCYTES % 11.1 % (2.0-8.0); NEUTROPHILS % 68.2 % (40.0-76.0); PLATELET 305 x1000/uL (130-400); RED BLOOD CELL COUNT 4.07 mill/uL (4.7-6.1)
[2021-05-10 08:00] VITALS: BP 146/83
[2021-05-10 08:15] LABS: CHLORIDE 100 mEq/L (98-107)
[2021-05-10] MEDS: FAMOTIDINE 20MG/2ML VIAL IV SCH (10:19)
[2021-05-10] MEDS: SPIRONOLACTONE 25MG TABLET PO SCH (10:19)
[2021-05-10] MEDS: DOCUSATE SODIUM 100MG CAPSULE PO SCH (10:19)
[2021-05-10] MEDS: FUROSEMIDE 40MG TABLET PO SCH (10:19)
[2021-05-10] MEDS: AMLODIPINE 10MG TABLET PO SCH (10:20)
[2021-05-10 12:00] VITALS: BP 132/78
[2021-05-10 16:00] VITALS: BP 140/80
[2021-05-10 20:00] VITALS: BP 114/62
[2021-05-10] MEDS: FAMOTIDINE 20MG TABLET PO SCH (21:00)
[2021-05-11] VITALS: BP 123/69
[2021-05-11 04:00] VITALS: BP 132/81
[2021-05-11] MEDS: DEXT 5%/0.45% NACL KCL 20MEQ/L 1,000 ML IV SCH ×2 (05:35→16:38)
[2021-05-11] MEDS: SUCRALFATE 1G TABLET PO SCH ×4 (06:09→20:53)
[2021-05-11] MEDS: BLOOD SUGAR DIAGNOSTIC STRIP TEST SCH ×4 (06:42→20:53)
[2021-05-11] MEDS: INSULIN LISPRO 100 UNITS/ML SUBCUT SCH ×4 (06:42→20:52)
[2021-05-11 08:00] VITALS: BP 143/63
[2021-05-11 08:17] LABS: CHLORIDE 100 mEq/L (98-107)
[2021-05-11 08:19] LABS: EOSINOPHILS % 3.3 % (0.0-5.0); HEMATOCRIT. 27.6 % (42.0-52.0); HEMOGLOBIN. 8.9 g/dL (14.0-18.0); LYMPHOCYTES % 21.4 % (20.0-50.0); MEAN CORPUSCULAR HEMOGLOBIN 23.3 pg (28.0-32.0); MEAN CORPUSCULAR VOLUME 72.2 fL (80.0-94.0); MEAN PLATELET VOLUME 8.5 fl (7.4-10.4); MONOCYTES % 12.9 % (2.0-8.0); NEUTROPHILS % 61.4 % (40.0-76.0); PLATELET 275 x1000/uL (130-400); RED BLOOD CELL COUNT 3.82 mill/uL (4.7-6.1)
[2021-05-11] MEDS: DOCUSATE SODIUM 100MG CAPSULE PO SCH (08:55)
[2021-05-11] MEDS: AMLODIPINE 10MG TABLET PO SCH (08:55)
[2021-05-11] MEDS: FAMOTIDINE 20MG TABLET PO SCH ×2 (08:55→20:53)
[2021-05-11] MEDS: SPIRONOLACTONE 25MG TABLET PO SCH (08:55)
[2021-05-11] MEDS: FUROSEMIDE 40MG TABLET PO SCH (08:58)
[2021-05-11 12:00] VITALS: BP 125/81
[2021-05-11 16:00] VITALS: BP 103/48
[2021-05-11 20:00] VITALS: BP 105/56
[2021-05-12] VITALS: BP 105/53
[2021-05-12] MEDS: DEXT 5%/0.45% NACL KCL 20MEQ/L 1,000 ML IV SCH ×2 (00:42→06:45)
[2021-05-12 04:00] VITALS: BP 104/51
[2021-05-12] MEDS: INSULIN LISPRO 100 UNITS/ML SUBCUT SCH (05:58)
[2021-05-12] MEDS: BLOOD SUGAR DIAGNOSTIC STRIP TEST SCH (05:58)
[2021-05-12] MEDS: SUCRALFATE 1G TABLET PO SCH (06:45)
[2021-05-12 07:53] LABS: BASOPHILS % 1.1 % (0.0-2.0); EOSINOPHILS % 4.5 % (0.0-5.0); HEMATOCRIT. 29.2 % (42.0-52.0); HEMOGLOBIN. 9.2 g/dL (14.0-18.0); LYMPHOCYTES % 35.2 % (20.0-50.0); MEAN CORPUSCULAR HEMOGLOBIN 23.2 pg (28.0-32.0); MEAN CORPUSCULAR VOLUME 73.5 fL (80.0-94.0); MEAN PLATELET VOLUME 8.9 fl (7.4-10.4); MONOCYTES % 12.1 % (2.0-8.0); NEUTROPHILS % 47.1 % (40.0-76.0); PLATELET 281 x1000/uL (130-400); RED BLOOD CELL COUNT 3.97 mill/uL (4.7-6.1); RED CELL DISTRIBUTION WIDTH 26.6 % (11.6-14.6)
[2021-05-12 08:00] VITALS: BP 122/62
[2021-05-12 08:14] LABS: CHLORIDE 101 mEq/L (98-107)
[2021-05-12] MEDS: SPIRONOLACTONE 25MG TABLET PO SCH (08:40)
[2021-05-12] MEDS: FAMOTIDINE 20MG TABLET PO SCH (08:40)
[2021-05-12] MEDS: AMLODIPINE 10MG TABLET PO SCH (08:40)
[2021-05-12] MEDS: DOCUSATE SODIUM 100MG CAPSULE PO SCH (08:40)
[2021-05-12] MEDS: FUROSEMIDE 40MG TABLET PO SCH (08:43)
[2021-05-12 09:20] VITALS: BP 122/62
== END 2021-05-12 12:45 | disposition home or self-care (01) | DRG 329 ==
LOC: ER 14:10 → MICUSO 16:23 → EDBEDREQ 16:29 → EDBEDREQTM 16:29 → SUPCPDRO 19:19 → 8WST 04-29 09:28
PROVIDERS: ADMIT Internal Medicine; ATTEND Internal Medicine
PROC: 30233N1 Transfusion of Nonautologous Red Blood Cells into Peripheral Vein, Percutaneous Approach (ICD-10-PCS; 2021-04-29)
PROC: 02HV33Z Insertion of Infusion Device into Superior Vena Cava, Percutaneous Approach (ICD-10-PCS; 2021-04-30)
PROC: B548ZZA Ultrasonography of Superior Vena Cava, Guidance (ICD-10-PCS; 2021-04-30)
PROC: B5181ZA Fluoroscopy of Superior Vena Cava using Low Osmolar Contrast, Guidance (ICD-10-PCS; 2021-04-30)
PROC: 0DBK8ZZ Excision of Ascending Colon, Via Natural or Artificial Opening Endoscopic (ICD-10-PCS; principal; 2021-05-03)
PROC: 0DB80ZZ Excision of Small Intestine, Open Approach (ICD-10-PCS; 2021-05-07)
PROC: 0DBL0ZZ Excision of Transverse Colon, Open Approach (ICD-10-PCS; 2021-05-07)
DX: C18.2 Malignant neoplasm of ascending colon (principal); I21.4 Non-ST elevation (NSTEMI) myocardial infarction; N17.0 Acute kidney failure with tubular necrosis; I50.43 Acute on chronic combined systolic (congestive) and diastolic (congestive) heart failure; J18.9 Pneumonia, unspecified organism; J96.01 Acute respiratory failure with hypoxia; E44.1 Mild protein-calorie malnutrition; D62 Acute posthemorrhagic anemia; D50.9 Iron deficiency anemia, unspecified; I11.0 Hypertensive heart disease with heart failure; I45.10 Unspecified right bundle-branch block; E78.00 Pure hypercholesterolemia, unspecified; E78.5 Hyperlipidemia, unspecified; I25.10 Atherosclerotic heart disease of native coronary artery without angina pectoris; K29.70 Gastritis, unspecified, without bleeding; K40.90 Unilateral inguinal hernia, without obstruction or gangrene, not specified as recurrent; K76.89 Other specified diseases of liver; E11.9 Type 2 diabetes mellitus without complications; K21.9 Gastro-esophageal reflux disease without esophagitis; Z20.822 Contact with and (suspected) exposure to COVID-19; N40.0 Benign prostatic hyperplasia without lower urinary tract symptoms; Z85.46 Personal history of malignant neoplasm of prostate; Z87.11 Personal history of peptic ulcer disease; Z95.5 Presence of coronary angioplasty implant and graft; Z79.899 Other long term (current) drug therapy; Z68.24 Body mass index [BMI] 24.0-24.9, adult
CPT/HCPCS: 36415; 36573; 71045; 74176; 76705; 76770; 80048; 80053; 80061; 80076; 80202; 80305; 81003; 82270; 82378; 82550; 82553; 82607; 82728; 82746; 82962; 82977; 83036; 83540; 83550; 83735; 83880; 84132; 84145; 84439; 84443; 84484; 85018; 85025; 85379; 86850; 86900; 86920; 87426; 88305; 88307; 93005; 93306; 93970; 97162; 99291; C1725; C1769; C1893; C9113; J0456; J0690; J0696; J1100; J1170; J1815; J1885; J1940; J2250; J2270; J2405; J2704; J2765; J3010; J3370; J3475; J3480; J3490; J7050; J7060; P9016; Q9963

== ENCOUNTER 2021-05-25 09:22 | Inpatient (IN) | payer OTHER ==
[~2021-05-25] VITALS: Ht 177.8 cm; Wt 80.9 kg
[~2021-05-25 09:22] MED LIST changes: -IBUP-2028 MT; +OMEP40CA20 PO; -RANI150T7 MT; -TERA5CAP4 MT
[2021-05-25] MEDS ORDERED: ALBUTEROL (0.083%) 2.5MG/3ML NEB HHN STA (10:46)
[2021-05-25] MEDS ORDERED: IPRATROPIUM BROMIDE (0.02%) 0.5MG/2.5ML NEB HHN STA (10:46)
[2021-05-25 11:12] LABS: BASOPHILS % 0.9 % (0.0-2.0); CHLORIDE 111 mEq/L (98-107); EOSINOPHILS % 0.2 % (0.0-5.0); HEMOGLOBIN. 7.8 g/dL (14.0-18.0); MEAN CORPUSCULAR HEMOGLOBIN 23.9 pg (28.0-32.0); MEAN CORPUSCULAR VOLUME 76.7 fL (80.0-94.0); MEAN PLATELET VOLUME 8.2 fl (7.4-10.4); MONOCYTES % 9.7 % (2.0-8.0); NEUTROPHILS % 68.2 % (40.0-76.0); PLATELET 426 x1000/uL (130-400); RED BLOOD CELL COUNT 3.27 mill/uL (4.7-6.1)
[2021-05-25] MEDS ORDERED: FUROSEMIDE 40MG/4ML VIAL IVP ONE (12:00)
[2021-05-25 12:15] LABS: PLATELET ESTIMATE SLIGHTLY INCREASED
[2021-05-25 13:52] LABS: CLARITY URINE CLEAR (CLEAR); COLOR URINE YELLOW (YELLOW); KETONES URINE NEGATIVE (NEGATIVE); LEUKOCYTE ESTERASE URINE NEGATIVE (NEGATIVE); NITRITE URINE NEGATIVE (NEGATIVE); OCCULT BLOOD URINE NEGATIVE (NEGATIVE); PROTEIN URINE 1+ (NEGATIVE); SPECIFIC GRAVITY URINE 1.012 (1.005-1.030); UROBILINOGEN URINE 0.2 E.U./dL (0.2-1.0)
[2021-05-25] MEDS ORDERED: ONDANSETRON HCL 4MG/2ML INJ IV PRN (16:00)
[2021-05-25] MEDS ORDERED: ACETAMINOPHEN 325MG TABLET PO PRN (16:00)
[2021-05-25 20:00] VITALS: BP 114/64
[2021-05-25] MEDS: METOPROLOL TARTRATE 50MG TABLET PO SCH (20:13)
[2021-05-25 21:00] VITALS: BP 118/64
[2021-05-25 22:00] VITALS: BP 131/90
[2021-05-25 22:30] VITALS: BP 128/86
[2021-05-25] MEDS: IRON SUCROSE COMPLEX 100 MG/5 ML ML IV SCH (22:35)
[2021-05-26] MEDS: IPRATROPIUM BROMIDE (0.02%) 0.5MG/2.5ML NEB HHN SCH ×7 (00:41→23:51)
[2021-05-26 04:00] VITALS: BP 104/56
[2021-05-26 07:26] LABS: BASOPHILS % 0.4 % (0.0-2.0); EOSINOPHILS % 0.3 % (0.0-5.0); HEMATOCRIT. 25.3 % (42.0-52.0); HEMOGLOBIN. 7.6 g/dL (14.0-18.0); LYMPHOCYTES % 13.1 % (20.0-50.0); MEAN CORPUSCULAR HEMOGLOBIN 23.6 pg (28.0-32.0); MEAN CORPUSCULAR VOLUME 78.3 fL (80.0-94.0); MEAN PLATELET VOLUME 8.4 fl (7.4-10.4); NEUTROPHILS % 75.2 % (40.0-76.0); PLATELET 373 x1000/uL (130-400); RED BLOOD CELL COUNT 3.22 mill/uL (4.7-6.1); RED CELL DISTRIBUTION WIDTH 25.6 % (11.6-14.6)
[2021-05-26 08:00] VITALS: BP 101/68
[2021-05-26] MEDS: FUROSEMIDE 40MG/4ML VIAL IVP SCH (09:00)
[2021-05-26] MEDS: METOPROLOL TARTRATE 50MG TABLET PO SCH ×2 (09:00→21:15)
[2021-05-26] MEDS ORDERED: SODIUM POLYSTYRENE SULFONATE 15 G/60 ML BOT PO NR (10:00)
[2021-05-26 11:52] VITALS: BP 113/63
[2021-05-26 16:00] VITALS: BP 123/75
[2021-05-26 20:37] VITALS: BP 124/78
[2021-05-26] MEDS: IRON SUCROSE COMPLEX 100 MG/5 ML ML IV SCH (21:15)
[2021-05-27] VITALS (8 sets, daily range): BP systolic 105–123; BP diastolic 58–83
[2021-05-27] MEDS: IPRATROPIUM BROMIDE (0.02%) 0.5MG/2.5ML NEB HHN SCH ×5 (04:19→20:33)
[2021-05-27 07:29] LABS: BASOPHILS % 0.8 % (0.0-2.0); HEMATOCRIT. 26.2 % (42.0-52.0); LYMPHOCYTES % 15.3 % (20.0-50.0); MEAN CORPUSCULAR HEMOGLOBIN 23.6 pg (28.0-32.0); MEAN CORPUSCULAR VOLUME 77.7 fL (80.0-94.0); MEAN PLATELET VOLUME 8.6 fl (7.4-10.4); MONOCYTES % 11.3 % (2.0-8.0); NEUTROPHILS % 70.6 % (40.0-76.0); PLATELET 354 x1000/uL (130-400); RED BLOOD CELL COUNT 3.37 mill/uL (4.7-6.1); RED CELL DISTRIBUTION WIDTH 25.6 % (11.6-14.6)
[2021-05-27] MEDS: PANTOPRAZOLE SODIUM 40 MG/VIAL IV SCH (08:21)
[2021-05-27] MEDS: FUROSEMIDE 40MG/4ML VIAL IVP SCH (08:21)
[2021-05-27] MEDS: METOPROLOL TARTRATE 50MG TABLET PO SCH ×2 (08:22→21:00)
[2021-05-27] MEDS: BISACODYL 5MG TABLET PO SCH (08:22)
[2021-05-27] MEDS ORDERED: MAGNESIUM CITRATE 300ML SOLUTION PO NR (14:00)
[2021-05-27] MEDS ORDERED: FURO-151 MT (17:39)
[2021-05-27] MEDS ORDERED: POLYETHYLENE GLYCOL 3350 (17GM) 1 DOSE PACK PO NR (18:00)
[2021-05-27] MEDS: IRON SUCROSE COMPLEX 100 MG/5 ML ML IV SCH (21:50)
[2021-05-28] VITALS: BP 105/55
[2021-05-28] MEDS: IPRATROPIUM BROMIDE (0.02%) 0.5MG/2.5ML NEB HHN SCH ×5 (00:32→16:51)
[2021-05-28 04:00] VITALS: BP 113/69
[2021-05-28 07:10] LABS: BASOPHILS % 0.5 % (0.0-2.0); EOSINOPHILS % 1.3 % (0.0-5.0); HEMATOCRIT. 28.2 % (42.0-52.0); HEMOGLOBIN. 8.7 g/dL (14.0-18.0); MEAN PLATELET VOLUME 8.8 fl (7.4-10.4); MONOCYTES % 10.5 % (2.0-8.0); NEUTROPHILS % 66.7 % (40.0-76.0); PLATELET 419 x1000/uL (130-400); RED BLOOD CELL COUNT 3.62 mill/uL (4.7-6.1); RED CELL DISTRIBUTION WIDTH 25.5 % (11.6-14.6)
[2021-05-28 08:00] VITALS: BP 131/76
[2021-05-28] MEDS: FUROSEMIDE 40MG/4ML VIAL IVP SCH (08:43)
[2021-05-28] MEDS: PANTOPRAZOLE SODIUM 40 MG/VIAL IV SCH (08:43)
[2021-05-28] MEDS: METOPROLOL TARTRATE 50MG TABLET PO SCH (08:43)
[2021-05-28] MEDS: BISACODYL 5MG TABLET PO SCH (08:44)
[2021-05-28] MEDS ORDERED: SORBITOL 70% SOLN 30ML PO NR (09:45)
[2021-05-28 12:00] VITALS: BP 132/72
[2021-05-28] MEDS ORDERED: NA PHOS,M-B/NA PHOS,DI-BA ENEMA 118ML PR NR (14:30)
[2021-05-28 16:00] VITALS: BP 123/75
[2021-05-28 16:13] VITALS: BP 123/75
[2021-05-29] MEDS ORDERED: FUROSEMIDE 40MG TABLET PO SCH (09:00)
== END 2021-05-28 16:50 | disposition home or self-care (01) | DRG 280 ==
LOC: ER 09:32 → 7EST 13:14 → ENRESERV 17:46
PROVIDERS: ADMIT Internal Medicine; ATTEND Internal Medicine
DX: I13.0 Hypertensive heart and chronic kidney disease with heart failure and stage 1 through stage 4 chronic kidney disease, or unspecified chronic kidney disease (principal); I21.4 Non-ST elevation (NSTEMI) myocardial infarction; I50.43 Acute on chronic combined systolic (congestive) and diastolic (congestive) heart failure; E44.0 Moderate protein-calorie malnutrition; N17.9 Acute kidney failure, unspecified; I42.9 Cardiomyopathy, unspecified; I27.20 Pulmonary hypertension, unspecified; E87.5 Hyperkalemia; J44.9 Chronic obstructive pulmonary disease, unspecified; E87.8 Other disorders of electrolyte and fluid balance, not elsewhere classified; N18.9 Chronic kidney disease, unspecified; D50.9 Iron deficiency anemia, unspecified; E78.00 Pure hypercholesterolemia, unspecified; K21.9 Gastro-esophageal reflux disease without esophagitis; E78.5 Hyperlipidemia, unspecified; I25.10 Atherosclerotic heart disease of native coronary artery without angina pectoris; I45.10 Unspecified right bundle-branch block; N28.89 Other specified disorders of kidney and ureter; I48.91 Unspecified atrial fibrillation; I34.0 Nonrheumatic mitral (valve) insufficiency; K40.20 Bilateral inguinal hernia, without obstruction or gangrene, not specified as recurrent; K64.9 Unspecified hemorrhoids; K59.00 Constipation, unspecified; Z20.822 Contact with and (suspected) exposure to COVID-19; K76.89 Other specified diseases of liver; N40.0 Benign prostatic hyperplasia without lower urinary tract symptoms; Z85.038 Personal history of other malignant neoplasm of large intestine; Z90.49 Acquired absence of other specified parts of digestive tract; Z68.25 Body mass index [BMI] 25.0-25.9, adult; Z79.899 Other long term (current) drug therapy; K64.8 Other hemorrhoids
CPT/HCPCS: 36415; 71045; 74176; 80048; 80053; 81003; 83880; 84484; 85025; 87426; 93005; 94640; 99291; C9113; J1940; J2405

== ENCOUNTER 2021-06-22 08:12 | Inpatient (IN) | payer OTHER ==
[~2021-06-22] VITALS: Ht 177.8 cm; Wt 86.6 kg
[~2021-06-22 08:12] MED LIST changes: +FURO-151 MT; -LISI-649 MT
[2021-06-22] MEDS ORDERED: FLUORESCEIN SODIUM 1MG/STRIP RIGHTEYE ONE (08:45)
[2021-06-22] MEDS ORDERED: TETRACAINE 0.5% OPHTH DROPS 4ML RIGHTEYE ONE (08:45)
[2021-06-22 08:55] LABS: BASOPHILS % 0.9 % (0.0-2.0); EOSINOPHILS % 2.5 % (0.0-5.0); HEMATOCRIT. 27.7 % (42.0-52.0); HEMOGLOBIN. 8.6 g/dL (14.0-18.0); LYMPHOCYTES % 30.4 % (20.0-50.0); MEAN CORPUSCULAR HEMOGLOBIN 23.2 pg (28.0-32.0); MEAN CORPUSCULAR VOLUME 74.7 fL (80.0-94.0); MEAN PLATELET VOLUME 8.8 fl (7.4-10.4); MONOCYTES % 12.2 % (2.0-8.0); PLATELET 221 x1000/uL (130-400); RED BLOOD CELL COUNT 3.71 mill/uL (4.7-6.1); RED CELL DISTRIBUTION WIDTH 23.9 % (11.6-14.6)
[2021-06-22 09:03] LABS: CHLORIDE 112 mEq/L (98-107)
[2021-06-22 09:06] LABS: INR 1.2; PARTIAL THROMBOPLASTIN TIME 28.8 sec (23.4-31.0); PROTHROMBIN TIME 12.9 sec (9.6-11.0)
[2021-06-22 09:12] LABS: C REACTIVE PROTEIN QUANT 0.4 mg/L (0.0-3.0)
[2021-06-22] MEDS ORDERED: ASPIRIN 81MG TABLET PO ONE (09:30)
[2021-06-22 09:36] LABS: PLATELET ESTIMATE NORMAL
[2021-06-22] MEDS ORDERED: FUROSEMIDE 40MG/4ML VIAL IV ONE (09:45)
[2021-06-22] MEDS ORDERED: NITROGLYCERIN OINT 1GM/INCH UDPKT TD ONE (09:45)
[2021-06-22] MEDS ORDERED: TIMOLOL MALEATE 0.5% OPHTH DROPS 5ML EACHEYE STA (12:19)
[2021-06-22] MEDS ORDERED: ACETAZOLAMIDE SODIUM 500MG/VIAL IV ONE (12:30)
[2021-06-22] MEDS ORDERED: ONDANSETRON HCL 4MG/2ML INJ IV PRN (13:15)
[2021-06-22] MEDS ORDERED: ACETAMINOPHEN 325MG TABLET PO PRN (13:15)
[2021-06-22] MEDS ORDERED: IRON SUCROSE COMPLEX 100 MG/5 ML ML IV NR (13:30)
[2021-06-22 16:00] VITALS: BP 150/85
[2021-06-22] MEDS ORDERED: ATOR-2 PO (16:58)
[2021-06-22] MEDS ORDERED: LISI-649 PO (16:58)
[2021-06-22 16:59] VITALS: BP 150/86
[2021-06-22 20:00] VITALS: BP 128/64
[2021-06-23] VITALS: BP 108/59
[2021-06-23 04:00] VITALS: BP 117/59
[2021-06-23 07:45] VITALS: BP 121/61
[2021-06-23] MEDS: FUROSEMIDE 40MG/4ML VIAL IVP SCH (08:37)
[2021-06-23] MEDS: IRON SUCROSE COMPLEX 100 MG/5 ML ML IV SCH (08:37)
[2021-06-23 11:23] VITALS: BP 124/57
[2021-06-23 15:59] VITALS: BP 135/70
[2021-06-23 19:46] LABS: BASOPHILS % 1.4 % (0.0-2.0); EOSINOPHILS % 3.1 % (0.0-5.0); HEMATOCRIT. 29.5 % (42.0-52.0); LYMPHOCYTES % 45.2 % (20.0-50.0); MEAN CORPUSCULAR HEMOGLOBIN 23.3 pg (28.0-32.0); MEAN CORPUSCULAR VOLUME 76.8 fL (80.0-94.0); MEAN PLATELET VOLUME 8.7 fl (7.4-10.4); MONOCYTES % 13.3 % (2.0-8.0); PLATELET 236 x1000/uL (130-400); RED BLOOD CELL COUNT 3.84 mill/uL (4.7-6.1); RED CELL DISTRIBUTION WIDTH 24.1 % (11.6-14.6)
[2021-06-23 20:00] VITALS: BP 118/64
[2021-06-23] MEDS: TAMSULOSIN HCL 0.4MG SR CAPSULE PO SCH (20:52)
[2021-06-24] VITALS: BP 110/63
[2021-06-24 00:14] LABS: CLARITY URINE CLEAR (CLEAR); COLOR URINE YELLOW (YELLOW); KETONES URINE NEGATIVE (NEGATIVE); LEUKOCYTE ESTERASE URINE NEGATIVE (NEGATIVE); NITRITE URINE NEGATIVE (NEGATIVE); OCCULT BLOOD URINE NEGATIVE (NEGATIVE); PROTEIN URINE NEGATIVE (NEGATIVE); SPECIFIC GRAVITY URINE 1.016 (1.005-1.030); UROBILINOGEN URINE 0.2 E.U./dL (0.2-1.0)
[2021-06-24 04:00] VITALS: BP 97/53
[2021-06-24 08:00] VITALS: BP 120/70
[2021-06-24] MEDS: TAMSULOSIN HCL 0.4MG SR CAPSULE PO SCH (08:36)
[2021-06-24] MEDS: IRON SUCROSE COMPLEX 100 MG/5 ML ML IV SCH (08:36)
[2021-06-24] MEDS: FUROSEMIDE 40MG/4ML VIAL IVP SCH (08:37)
[2021-06-24 12:00] VITALS: BP 113/61
[2021-06-24 16:40] VITALS: BP 122/73
== END 2021-06-24 18:13 | disposition home or self-care (01) | DRG 123 ==
LOC: ER 08:31 → 8WST 12:14 → EDBEDREQ 12:19 → EDBEDREQTM 12:19 → ENRESERV 14:01 → ER 16:14
PROVIDERS: ADMIT Internal Medicine; ATTEND Internal Medicine
DX: H34.11 Central retinal artery occlusion, right eye (principal); I50.43 Acute on chronic combined systolic (congestive) and diastolic (congestive) heart failure; E44.1 Mild protein-calorie malnutrition; I13.0 Hypertensive heart and chronic kidney disease with heart failure and stage 1 through stage 4 chronic kidney disease, or unspecified chronic kidney disease; N17.9 Acute kidney failure, unspecified; G90.8 Other disorders of autonomic nervous system; E87.8 Other disorders of electrolyte and fluid balance, not elsewhere classified; D64.9 Anemia, unspecified; D72.819 Decreased white blood cell count, unspecified; K21.9 Gastro-esophageal reflux disease without esophagitis; E78.00 Pure hypercholesterolemia, unspecified; I25.10 Atherosclerotic heart disease of native coronary artery without angina pectoris; I27.20 Pulmonary hypertension, unspecified; J44.9 Chronic obstructive pulmonary disease, unspecified; N18.9 Chronic kidney disease, unspecified; Z85.038 Personal history of other malignant neoplasm of large intestine; Z90.49 Acquired absence of other specified parts of digestive tract; Z79.899 Other long term (current) drug therapy; Z68.27 Body mass index [BMI] 27.0-27.9, adult
CPT/HCPCS: 36415; 71045; 80048; 80053; 81003; 83880; 84484; 85025; 85651; 86140; 93005; 99285; J1120; J1940

== ENCOUNTER 2023-01-06 07:42 | Emergency (ER) | payer OTHER, MEDICARE ==
[~2023-01-06] VITALS: Ht 182.9 cm; Wt 100.0 kg
[~2023-01-06 07:42] MED LIST changes: +ATOR-2 PO; +LISI-649 PO
[2023-01-06 07:59] VITALS: O2SAT 99
[2023-01-06 09:40] LABS: HEMATOCRIT. 37.8 % (42.0-52.0); HEMOGLOBIN. 12.3 g/dL (14.0-18.0); MEAN CORPUSCULAR HGB CONC 32.6 g/dL (31.0-37.0); MEAN CORPUSCULAR VOLUME 98.2 fL (80.0-94.0); MEAN PLATELET VOLUME 9.5 fl (7.4-10.4); PLATELET 178 x1000/uL (130-400); RED BLOOD CELL COUNT 3.85 mill/uL (4.7-6.1); RED CELL DISTRIBUTION WIDTH 15.1 % (11.6-14.6); WHITE BLOOD COUNT 3.8 x1000/uL (4.5-11.0)
[2023-01-06 09:41] LABS: DIFFERENTIAL COMMENT 1
[2023-01-06 09:50] LABS: INR 1.2; PROTHROMBIN TIME 12.8 sec (9.6-11.0)
[2023-01-06 10:02] LABS: ALANINE AMINOTRANSFERASE 50 IU/L (10-49); ALBUMIN 3.3 g/dL (3.2-4.8); ASPARTATE AMINOTRANSFERASE 41 IU/L (<34); BILIRUBIN TOTAL 1.3 mg/dL (0.1-1.0); CALCIUM 8.5 mg/dL (8.7-10.4); CARBON DIOXIDE 27 mEq/L (21-32); CHLORIDE 110 mEq/L (98-107); CREATININE 1.4 mg/dL (0.6-1.3); GLUCOSE 109 mg/dL (70-105); POTASSIUM 3.3 mEq/L (3.5-5.1); PROTEIN TOTAL 5.3 g/dL (6.0-8.3); SODIUM 144 mEq/L (136-145); TROPONIN I HIGH SENSITIVITY 31 ng/L (3.0-53); UREA NITROGEN BLOOD 12 mg/dL (9-23)
[2023-01-06 10:23] LABS: PLATELET ESTIMATE NORMAL
[2023-01-06] MEDS ORDERED: POTASSIUM CHLORIDE 20MEQ/PACKET PO NR (10:30)
[2023-01-06] MEDS ORDERED: SODIUM CHLORIDE 0.9% 500 ML IV ONE (10:30)
[2023-01-06 14:30] VITALS: BP 140/87; PULSE 81; RESP 16; TEMP 98
== END 2023-01-06 15:15 | disposition home or self-care (01) ==
LOC: ER 07:42
DX: J06.9 Acute upper respiratory infection, unspecified (principal); R10.9 Unspecified abdominal pain; K21.9 Gastro-esophageal reflux disease without esophagitis; E78.00 Pure hypercholesterolemia, unspecified; I10 Essential (primary) hypertension
CPT/HCPCS: 36415; 71045; 74176; 80053; 83605; 84484; 85025; 93005; 96360; 99285